=== PATIENT | female | born 1985 | race Two or more races ===

== ENCOUNTER 2019-08-24 14:49 | Emergency (ER) | payer MEDICAID, OTHER ==
[~2019-08-24] VITALS: Ht 165.1 cm; Wt 101.2 kg
[2019-08-24 15:22] LABS: CLARITY,URINE CLEAR (Clear); COLOR,URINE YELLOW (Yellow); GLUCOSE, URINE NEGATIVE (Neg); KETONES,URINE NEGATIVE (Neg); LEUKOCYTE ESTERASE ,URINE NEGATIVE (Neg); NITRITES, URINE NEGATIVE (Neg); OCCULT BLOOD,URINE LARGE (Neg); PROTEIN,URINE NEGATIVE (Neg); URINE HCG NEGATIVE (NEG); UROBILINOGEN,URINE 0.2 E.U/dL (0.2-1.0)
[2019-08-24 15:26] LABS: UA COLLECTION TYPE CLN CATCH MIDSTREAM
[2019-08-24 15:35] LABS: BACTERIA,URINE NONE SEEN /HPF (Neg); MUCUS STRANDS NONE SEEN /LPF (Neg); SQUAMOUS EPITHELIAL CELL,UR FEW /LPF (FEW); WBC,URINE 0-4 /HPF (0-4)
[2019-08-24 15:37] LABS: BASOPHILS # (AUTO) 0.1 X10'3 (0-0.2); BASOPHILS % (AUTO) 0.7 % (0-1); EOSINOPHILS # (AUTO) 0.1 X10'3 (0-0.9); EOSINOPHILS % (AUTO) 1.8 % (0-6); HEMATOCRIT 41.3 % (35.0-45.0); HEMOGLOBIN 13.8 g/dl (12.0-16.0); LYMPHOCYTES # (AUTO) 2.4 X10'3 (1.1-4.8); LYMPHOCYTES % (AUTO) 31.8 % (21-51); MEAN CORPUSCULAR HEMOGLOBIN 28.8 PG (27.0-31.0); MEAN CORPUSCULAR HGB CONC 33.4 g/dL (33.0-36.5); MEAN CORPUSCULAR VOLUME 86.2 FL (78-98); MEAN PLATELET VOLUME 8.3 FL (7.4-10.4); MONOCYTES # (AUTO) 0.7 X10'3 (0-0.9); MONOCYTES % (AUTO) 9.1 % (2-12); NEUTROPHILS # (AUTO) 4.3 X10'3 (1.8-7.7); NEUTROPHILS % (AUTO) 56.6 % (42-75); PLATELET COUNT 288 X10'3 (140-440); RED BLOOD COUNT 4.79 X10'6 (4.20-5.60); RED CELL DISTRIBUTION WIDTH 13.3 % (11.5-14.5); WHITE BLOOD COUNT 7.6 X10'3 (4.5-11.0)
[2019-08-24 15:58] LABS: ALANINE AMINOTRANSFERASE 47 U/L (12-78); ALBUMIN 3.7 G/DL (3.4-5.0); ALBUMIN/GLOBULIN RATIO 0.9 (1.1-1.5); ALKALINE PHOSPHATASE 58 IU/L (46-116); ANION GAP 7 (8-16); ASPARTATE AMINO TRANSFERASE 19 U/L (10-37); BILIRUBIN,TOTAL 0.3 MG/DL (0.1-1.0); BLOOD UREA NITROGEN 12 MG/DL (7-18); BUN/CREATININE RATIO 16.9 (6.6-38.0); CALCIUM 9.1 MG/DL (8.5-10.1); CHLORIDE 106 MMOL/L (99-107); CREATININE 0.71 MG/DL (0.40-0.90); GLUCOSE 104 MG/DL (70-104); LIPASE 121 U/L (73-393); POTASSIUM 3.9 MMOL/L (3.5-5.1); SODIUM 140 MMOL/L (135-145); TOTAL CARBON DIOXIDE 26.8 MMOL/L (24-32); TOTAL PROTEIN 7.7 G/DL (6.4-8.2); eGFR > 90 ML/MIN
[2019-08-24] MEDS ORDERED: pantoprazole 40mg Tablet.DR PO ONE (16:55)
[2019-08-24] MEDS ORDERED: famotidine 20mg tablet PO ONE (16:55)
[2019-08-24 17:04] VITALS: BP 148/88
--- NOTE | 2019-08-24 17:50 | NUR ---
US tech at bedside
[2019-08-24] MEDS ORDERED: PANT-47 PO (18:17)
[2019-08-24] MEDS ORDERED: FAMO40TA73 PO (18:17)
== END 2019-08-24 18:39 | disposition home or self-care (01) ==
LOC: ER 14:51
DX: K21.9 Gastro-esophageal reflux disease without esophagitis (principal); K76.0 Fatty (change of) liver, not elsewhere classified; R10.13 Epigastric pain; R19.7 Diarrhea, unspecified; I10 Essential (primary) hypertension; Z98.890 Other specified postprocedural states; Z88.0 Allergy status to penicillin; Z79.899 Other long term (current) drug therapy
CPT/HCPCS: 36415; 76700; 80053; 81001; 81025; 83690; 85025; 99284

== ENCOUNTER 2024-04-06 11:20 | Emergency (ER) | payer MEDICAID, OTHER ==
[~2024-04-06] VITALS: Ht 165.1 cm; Wt 87.6 kg
[~2024-04-06 11:20] MED LIST: FAMO40TA73 PO; PANT-47 PO
[2024-04-06 11:27] VITALS: BP 169/93; PULSE 84; TEMP 98.7; O2SAT 99
[2024-04-06 14:30] LABS: BILIRUBIN,URINE NEGATIVE (Neg); CLARITY,URINE SLIGHTLY CLOUDY (Clear); COLOR,URINE YELLOW (Yellow); GLUCOSE, URINE NEGATIVE (Neg); KETONES,URINE NEGATIVE (Neg); LEUKOCYTE ESTERASE ,URINE NEGATIVE (Neg); NITRITES, URINE NEGATIVE (Neg); OCCULT BLOOD,URINE NEGATIVE (Neg); PH,URINE 7.5 (4.8-8.0); PROTEIN,URINE NEGATIVE (Neg); UROBILINOGEN,URINE 0.2 E.U/dL (0.2-1.0)
[2024-04-06 14:35] LABS: UA COLLECTION TYPE CLN CATCH MIDSTREAM
[2024-04-06 14:37] LABS: AMORPHOUS PHOSPHATES 4+; BACTERIA,URINE FEW /HPF (Neg); RBC,URINE NONE SEEN /HPF (0-2); SQUAMOUS EPITHELIAL CELL,UR FEW /LPF (FEW); WBC,URINE 0-4 /HPF (0-4)
[2024-04-06 14:42] LABS: BASOPHILS % (AUTO) 0.4 % (0-1); EOSINOPHILS # (AUTO) 0.1 X10'3 (0-0.9); EOSINOPHILS % (AUTO) 1.3 % (0-6); HEMATOCRIT 41.2 % (35.0-45.0); HEMOGLOBIN 13.7 g/dl (12.0-16.0); LYMPHOCYTES # (AUTO) 2.6 X10'3 (1.1-4.8); LYMPHOCYTES % (AUTO) 31.8 % (21-51); MEAN CORPUSCULAR HEMOGLOBIN 28.2 PG (27.0-31.0); MEAN CORPUSCULAR HGB CONC 33.3 g/dL (33.0-36.5); MEAN CORPUSCULAR VOLUME 84.8 FL (78-98); MEAN PLATELET VOLUME 8.1 FL (7.4-10.4); MONOCYTES # (AUTO) 0.7 X10'3 (0-0.9); NEUTROPHILS # (AUTO) 4.8 X10'3 (1.8-7.7); NEUTROPHILS % (AUTO) 58.5 % (42-75); PLATELET COUNT 326 X10'3 (140-440); RED BLOOD COUNT 4.86 X10'6 (4.20-5.60); RED CELL DISTRIBUTION WIDTH 14.2 % (11.5-14.5); WHITE BLOOD COUNT 8.2 X10'3 (4.5-11.0)
[2024-04-06 14:44] VITALS: RESP 16
[2024-04-06] MEDS: sennosides/docusate sodium tablet PO STA (14:44)
[2024-04-06] MEDS: ketorolac trometh 30MG/ML vial 30 MG/ML VIAL IM STA (14:44)
[2024-04-06] MEDS: polyethylene glycol 3350 17gm powd pack PO STA (14:44)
[2024-04-06 15:07] LABS: ALANINE AMINOTRANSFERASE 22 U/L (12-78); ALBUMIN 3.7 G/DL (3.4-5.0); ALBUMIN/GLOBULIN RATIO 0.9 (1.1-1.5); ALKALINE PHOSPHATASE 63 IU/L (46-116); ANION GAP 7 (8-16); ASPARTATE AMINO TRANSFERASE 11 U/L (10-37); BILIRUBIN,TOTAL 0.2 MG/DL (0.1-1.0); BLOOD UREA NITROGEN 16 MG/DL (7-18); BUN/CREATININE RATIO 30.8 (10.0-20.0); CALCIUM 8.8 MG/DL (8.5-10.1); CHLORIDE 104 MMOL/L (99-107); CREATININE 0.52 MG/DL (0.40-0.90); GLUCOSE 89 MG/DL (70-104); POTASSIUM 4.2 MMOL/L (3.5-5.1); SODIUM 138 MMOL/L (135-145); TOTAL CARBON DIOXIDE 26.7 MMOL/L (24-32); TOTAL PROTEIN 7.9 G/DL (6.4-8.2); eCRCL 131 ML/MIN; eGFR > 90 ML/MIN
[2024-04-06] MEDS ORDERED: SENN-360 PO (15:20)
[2024-04-06] MEDS ORDERED: MELO-102 PO (15:20)
[2024-04-06] MEDS ORDERED: POLY119P2 PO (15:20)
[2024-04-06] MEDS ORDERED: METH-798 PO (15:20)
== END 2024-04-06 15:47 | disposition home or self-care (01) ==
LOC: ER 11:21
DX: S39.012A Strain of muscle, fascia and tendon of lower back, initial encounter (principal); I10 Essential (primary) hypertension; K59.00 Constipation, unspecified; Z88.0 Allergy status to penicillin; Z98.890 Other specified postprocedural states; X58.XXXA Exposure to other specified factors, initial encounter; Y93.89 Activity, other specified; Y92.89 Other specified places as the place of occurrence of the external cause; Y99.8 Other external cause status
CPT/HCPCS: 36415; 72110; 80053; 81001; 85025; 96372; 99284; J1885

== ENCOUNTER 2024-07-02 17:54 | Emergency (ER) | payer MEDICAID ==
[~2024-07-02] VITALS: Ht 165.1 cm; Wt 97.7 kg
[~2024-07-02 17:54] MED LIST changes: +MELO-102 PO; +METH-798 PO; +POLY119P2 PO; +SENN-360 PO
[2024-07-02] MEDS ORDERED: AZIT-164 PO (18:32)
[2024-07-02] MEDS ORDERED: PSEU-303 PO (18:32)
[2024-07-02] MEDS ORDERED: FLUT16SP2 BOTHNARES (18:32)
[2024-07-02 18:54] VITALS: BP 145/98; PULSE 86; RESP 18; TEMP 98.9; O2SAT 99
== END 2024-07-02 18:55 | disposition home or self-care (01) ==
LOC: ER 17:55
DX: J01.00 Acute maxillary sinusitis, unspecified (principal); I10 Essential (primary) hypertension; Z88.0 Allergy status to penicillin; Z79.899 Other long term (current) drug therapy; Z98.890 Other specified postprocedural states
CPT/HCPCS: 99283

== ENCOUNTER 2024-12-07 17:42 | Emergency (ER) | payer MEDICAID ==
[~2024-12-07] VITALS: Ht 165.1 cm; Wt 101.8 kg
[~2024-12-07 17:42] MED LIST changes: +FLUT16SP2 BOTHNARES; +PSEU-303 PO
[2024-12-07 17:57] VITALS: TEMP 97.6
--- NOTE | 2024-12-07 18:56 | Physician Documentation ---
History of Present Illness ~ Chief Complaint: Cold, cough & congestion Stated Complaint: SINUS COLD Time Seen by MD: 18:38 Primary Medical Doctor: [facility] HPI Patient is a 39-year-old female that presents to the emergency department for evaluation of right-sided sinus congestion right ear pain sore throat x5 days. She reports that she has had infectious looking drainage from her sinuses when she is able to blow her nose right ear is very painful in her throat is sore when she swallows. Patient does not believe that she has had any fevers no nausea no vomiting and no diarrhea at this time. Patient does report that her chest feels a little bit tight when she takes a deep breath. Medication Reconciliation Allergies: Coded Allergies: Penicillins (Verified Allergy, Intermediate, Rash, 12/07/24) Scheduled Famotidine (Pepcid), 1 TAB PO DAILY Fluticasone Propionate (Flonase), 2 SPRAYS BOTHNARES DAILY Meloxicam (Meloxicam), 1 TAB PO DAILY Methocarbamol (Methocarbamol), 1-2 TAB PO Q8H Pantoprazole Sodium (PROTONIX tablet), 1 TAB PO DAILY Polyethylene Glycol 3350 (Miralax), 17 GM PO DAILY Pseudoephedrine HCl (Sudafed), 1 TAB PO Q8H Sennosides (Senna), 1-2 TAB PO TID Past Medical History Past Medical History: Hypertension Past Surgical History: Alcohol Use: None Drug Use: none Lives with: Family Lives In: Home Review of Systems ROS As stated above in the HPI, otherwise all systems are reviewed and negative. Physical Exam Vital Signs: Temperature: 97.6, Source: Temporal, Heart Rate: 85, Respiratory Rate: 18, BP: 151/97, Pulse Oximetry: 97, Weight: 101.820 Oxygen Flow Rate: 0 Physical Exam VITALS: Reviewed and as above. GENERAL: Alert, no apparent distress. HEENT: Normocephalic, atraumatic, PERRL, EOMI, dry mucosa, no erythema, large nasal turbinate, erythema and bulging of the tympanic membrane of the right ear, bilateral tonsils demonstrate erythema and exudate, posterior oropharynx is erythematous, bilateral lymphadenopathy noted on exam. RESPIRATORY: Lungs clear, normal breath sounds, no respiratory distress. CHEST: No accessory muscle use, no retractions CV: Regular rate, rhythm, no edema, no murmur, No: JVD GI: Soft, non-tender, bowels sounds present, no rebound, guarding, or rigidity BACK: No CVA tenderness, or swelling MUSCULOSKELETAL No deformities, no edema SKIN: Warm and dry, no rash NEURO: Oriented x4, No motor or sensory deficit PSYCH: Normal mood and affect, no agitation Progress Results/Orders Results/Orders Orders - MYA QUIÑONES HOUSEMAN Covid19 Binax Poc Result Entry (12/07/24 18:48) Chest,Two Views (12/07/24 18:53) Cult Throat + R/O Beta Strep (12/07/24 20:07) Levofloxacin 750mg Tablet (Levaquin 750m (12/07/24 21:50) Completed Orders - MYA QUIÑONES HOUSEMAN Strep A Rapid (12/07/24 18:53) Chest,Two Views (12/07/24 18:53) Vital Signs 12/07/24 12/07/24 17:57 19:46 Temp 97.6 Pulse 85 68 Resp 18 22 B/P (MAP) 151/97 166/104 (124) Pulse Ox 97 96 O2 Flow Rate 0 0 Laboratory Tests Test 12/07/24 19:45 SARS-CoV-2 Antigen (Rapid) Negative Group A Streptococcus Rapid Negative Medical Decision Making Findings This patient presents with symptoms suspicious for likely viral upper respiratory infection. Based on history and physical likely secondary sinusitis. COVID test negative, rapid strep negative. Do not suspect underlying cardiopulmonary process. I considered, but think unlikely, dangerous causes of this patients symptoms to include ACS, CHF or COPD exacerbations, pneumonia, pneumothorax. Patient is nontoxic appearing and not in need of emergent medical intervention. Patient will be given her 1st dose of levofloxacin here in the emergency department prior to discharge. Patient will be sent home with a prescription for levofloxacin. Patient will follow up with her primary care provider. Patient will return to the emergency department with any worsening or recurrent symptoms or any additional concerning symptoms that we discussed here today i.e. increased drainage blood in her sinuses headache difficulty breathing fever chills or any other concerning symptoms. Differential Dx:Considerations: Include: Allergic rhinitis, Influenza, Otitis media, Peritonsillar abscess, Pharyngitis-Diphtheria, Pharyngitis-Streptoccal, Pharyngitis-Viral, Pneumonia, Pnuemonitis, Sinusitis, URI, Other Departure Disposition: HOME / SELF CARE / HOMELESS Impression: Primary Impression: Sinusitis Additional Impressions: Acute respiratory infection Congestion of paranasal sinus Discharge Instructions: Upper Respiratory Infection, Adult, Sinus Infection, Adult Additional Instructions: This patient presents with symptoms suspicious for likely viral upper respiratory infection. Based on history and physical likely secondary sinusitis. COVID test negative, rapid strep negative. Do not suspect underlying cardiopulmonary process. I considered, but think unlikely, dangerous causes of this patients symptoms to include ACS, CHF or COPD exacerbations, pneumonia, pneumothorax. Patient is nontoxic appearing and not in need of emergent medical intervention. Patient will be given her 1st dose of levofloxacin here in the emergency department prior to discharge. Patient will be sent home with a prescription for levofloxacin. Patient will follow up with her primary care provider. Patient will return to the emergency department with any worsening or recurrent symptoms or any additional concerning symptoms that we discussed here today i.e. increased drainage blood in her sinuses headache difficulty breathing fever chills or any other concerning symptoms. Referrals: NO PRIMARY CARE PROVIDER (PCP) Prescriptions Levofloxacin (Levofloxacin) 750 Mg Tablet 1 TAB PO DAILY for 7 Days, #7 TAB Prov: MYA QUIÑONES 12/07/24 Education Educated: Patient Educated regarding: diagnosis, treatment, need for follow up Signature Scribe Signature: A Attestation: Scribed for Mya Quiñones by STAR Roger . 12/07/24 21:46 MYA QUIÑONES Dec 07, 2024 18:56
--- NOTE | 2024-12-07 19:12 | RADIOLOGY REPORT ---
DI CHEST,TWO VIEWS CLINICAL HISTORY: Tightness with inspiration COMPARISON: None TECHNIQUE: Frontal and lateral view of the chest was obtained FINDINGS: Lines and Tubes: None Lungs: No focal consolidation. Mild elevation of the right hemidiaphragm. Pleura: No effusion. No pneumothorax. Cardiomediastinal contours: Unremarkable Bones: No acute osseous abnormality. IMPRESSION: No acute cardiopulmonary disease.
[2024-12-07 19:46] VITALS: BP 166/104; PULSE 68; RESP 22; O2SAT 96
[2024-12-07 20:07] LABS: STREP A SCREEN NEGATIVE (Neg)
[2024-12-07] MEDS ORDERED: LEVO750T68 PO (21:48)
[2024-12-07] MEDS: levoFLOXACIN 750MG TABLET PO ONE (21:57)
== END 2024-12-07 22:01 | disposition home or self-care (01) ==
LOC: ER 17:43
DX: J32.9 Chronic sinusitis, unspecified (principal); J22 Unspecified acute lower respiratory infection; H92.01 Otalgia, right ear; I10 Essential (primary) hypertension; Z88.0 Allergy status to penicillin; Z88.8 Allergy status to other drugs, medicaments and biological substances; Z20.822 Contact with and (suspected) exposure to COVID-19
CPT/HCPCS: 36415; 71046; 87081; 87811; 87880; 99284